=== PATIENT | female | born 1965 | race Caucasian/White ===

== ENCOUNTER 2024-12-17 10:21 | Inpatient (IN) | payer MEDICAID ==
[~2024-12-17] VITALS: Ht 170.1 cm; Wt 179.8 kg
[2024-12-17] MEDS ORDERED: ASPIRIN ADULT L81 M1 PO (11:18)
[2024-12-17] MEDS ORDERED: LASIX40 MG PO (11:19)
[2024-12-17] MEDS ORDERED: NEURONTIN600 MG PO (11:19)
[2024-12-17] MEDS ORDERED: LOSARTAN POTAS100 MG PO (11:20)
[2024-12-17] MEDS ORDERED: TRULICITY0.75 MG/0. SC (11:20)
[2024-12-17] MEDS ORDERED: CARVEDILOL3.125 MG PO (11:21)
[2024-12-17] MEDS ORDERED: FENOFIBRATE145 M1 PO (11:21)
[2024-12-17] MEDS ORDERED: BUSPAR5 MG PO (11:22)
[2024-12-17] MEDS ORDERED: METFORMIN HCL500 M3 PO (11:22)
[2024-12-17] MEDS ORDERED: ABILIFY10 MG PO (11:23)
[2024-12-17] MEDS ORDERED: REXULTI1 MG PO (11:23)
[2024-12-17] MEDS ORDERED: LIPITOR40 MG PO (11:24)
[2024-12-17] MEDS ORDERED: EFFEXOR XR75 M1 PO (11:24)
[2024-12-17] MEDS ORDERED: IRON325 M1 PO (11:25)
[2024-12-17] MEDS ORDERED: PANTOPRAZOLE SO40 MG PO (11:25)
[2024-12-17] MEDS ORDERED: ROPINIROLE HCL5 MG PO (11:26)
[2024-12-17] MEDS ORDERED: Clopidogrel75 MG PO (11:26)
[2024-12-17] MEDS ORDERED: XARE20MG PO (11:27)
[2024-12-17] MEDS ORDERED: VENT7GM INH (11:28)
[2024-12-17] MEDS ORDERED: DRAMAMINE25 M4 PO (11:29)
[2024-12-17] MEDS ORDERED: MEDROL DOSEPAK4 MG PO (11:30)
[2024-12-17] MEDS ORDERED: LORazepam 1 MG TAB PO PRN (11:35)
[2024-12-17] MEDS ORDERED: hydrOXYzine hydrochloride 50 MG/ML VIAL IM PRN (11:40)
[2024-12-17 14:02] VITALS: BP 160/84
[2024-12-17 14:36] VITALS: BP 160/84
[2024-12-17] MEDS ORDERED: FUROSEMIDE 40 MG TAB PO PRN (15:25)
[2024-12-17] MEDS ORDERED: DEXTROSE 50% 25 GM/50 ML VIAL IV PRN (15:25)
[2024-12-17] MEDS ORDERED: CARVEDILOL 3.125 MG TAB PO SCH (16:00)
[2024-12-17] MEDS ORDERED: CARVEDILOL 6.25 MG TAB PO SCH (16:00)
[2024-12-17] MEDS ORDERED: INSULIN LISPRO 1 UNIT/0.01 ML SQ SCH (16:30)
[2024-12-17] MEDS ORDERED: ACETAMINOPHEN 325 MG TAB PO PRN (16:35)
[2024-12-17] MEDS ORDERED: MG-AL HYDROXIDE/SIMETICONE 30 ML UDC PO PRN (16:35)
[2024-12-17] MEDS ORDERED: Menthol/Zinc Oxide 4 GM THIN T PRN (16:35)
[2024-12-17 20:00] VITALS: BP 131/78
[2024-12-17] MEDS ORDERED: Racepinephrine Hydrochloride 0.5 ML AMP NEB ONE (20:00)
[2024-12-17] MEDS ORDERED: SODIUM CHLORIDE 0.9% 3 ML AMP NEB ONE (20:00)
[2024-12-17] MEDS ORDERED: BREXPIPRAZOLE 1 MG TABLET PO SCH (21:00)
[2024-12-17] MEDS ORDERED: ATORVASTATIN CALCIUM 40 MG TABLET PO SCH (21:00)
[2024-12-17] MEDS ORDERED: Clopidogrel Hydrogen Sulfate 75 MG TAB PO SCH (21:00)
[2024-12-17] MEDS ORDERED: Mirtazapine 15 MG TAB PO SCH (21:00)
[2024-12-17] MEDS ORDERED: ARIPiprazole 5 MG TAB PO SCH (21:00)
[2024-12-17] MEDS ORDERED: GABAPENTIN 600 MG TAB PO SCH (22:00)
[2024-12-18 07:48] LABS: BASO # 0.0 10*3/uL (0.0-0.1); BASO % 0.6 % (0.0-1.0); EOS # 0.1 10*3/uL (0.0-0.4); EOS % 2.2 % (1.0-4.0); MEAN CELL VOLUME 100.2 fl (81.0-99.0); MEAN CORPUSCULAR HGB 31.2 pg (27.0-31.0); MEAN PLATELET VOLUME 10.5 fl (9.6-12.3); MONO # 0.5 10*3/uL (0.1-1.0); MONO % 7.2 % (3.0-9.0); NEUT # 3.6 10*3/uL (2.3-7.9); NEUT % 57.1 % (47.0-73.0); NUCLEATED RED BLOOD CELL 0.0 % (0.0-0.0); NUCLEATED RED BLOOD CELL 0.0 10*3/uL (0.0-0.0); PLATELET COUNT AUTOMATED 196 10*3/uL (130-400); RED CELL DISTRI WIDTH 12.7 % (0-14.5)
[2024-12-18 08:00] VITALS: BP 128/72
[2024-12-18 08:21] LABS: BUN 13 mg/dl (9-23); LDL CHOLESTEROL 83 mg/dL (9-159); SGPT/ALT 33 U/L (5-49)
[2024-12-18 08:42] LABS: VITAMIN D, 25-HYDROXY 24.5 ng/mL (30-100)
[2024-12-18] MEDS ORDERED: ASPIRIN, CHEWABLE 81 MG TAB PO SCH (09:00)
[2024-12-18] MEDS ORDERED: Metformin 500 MG EXTENDED-RELEASE TABLET PO SCH (09:00)
[2024-12-18] MEDS ORDERED: FENOFIBRATE 145 MG TAB PO SCH (09:00)
[2024-12-18] MEDS ORDERED: FERROUS SULFATE 325 MG TAB PO SCH (09:00)
[2024-12-18] MEDS ORDERED: AMMONIUM LACTATE 12% LOTION T SCH (10:00)
[2024-12-18] MEDS ORDERED: MUPIROCIN 15 GM TUBE T SCH (10:00)
[2024-12-18 18:35] LABS: BILIRUBIN Negative (Negative); BLOOD Negative (Negative); CLARITY Clear (Clear); COLOR Yellow (Yellow); KETONE Negative (Negative); LEUKO ESTERASE Negative (Negative); NITRITE Negative (Negative); PH 7.0 (4.5-8.0); SPECIFIC GRAVITY 1.020 (1.001-1.030); UROBILINOGEN 1.0 E.U./dl (0.0-1.0)
[2024-12-18 19:22] LABS: BACTERIA TRACE; RBC 0-2 rbc/hpf (0-2); WBC 0-2 wbc/hpf (0-5); YEAST TRACE
[2024-12-18 19:53] VITALS: BP 137/70
[2024-12-19 07:47] VITALS: BP 111/63
[2024-12-19] MEDS ORDERED: Cholecalciferol 5,000 IU CAP (125 MCG) PO SCH (09:00)
[2024-12-19 20:00] VITALS: BP 102/61
[2024-12-20 08:00] VITALS: BP 98/50
[2024-12-20 11:15] LABS: BASO # 0.0 10*3/uL (0.0-0.1); BASO % 0.5 % (0.0-1.0); EOS # 0.1 10*3/uL (0.0-0.4); EOS % 1.6 % (1.0-4.0); MEAN CELL VOLUME 101.7 fl (81.0-99.0); MEAN CORPUSCULAR HGB 31.6 pg (27.0-31.0); MEAN PLATELET VOLUME 10.1 fl (9.6-12.3); MONO # 0.4 10*3/uL (0.1-1.0); MONO % 6.3 % (3.0-9.0); NEUT # 4.4 10*3/uL (2.3-7.9); NEUT % 69.0 % (47.0-73.0); NUCLEATED RED BLOOD CELL 0.0 % (0.0-0.0); NUCLEATED RED BLOOD CELL 0.0 10*3/uL (0.0-0.0); PLATELET COUNT AUTOMATED 190 10*3/uL (130-400); RED CELL DISTRI WIDTH 12.7 % (0-14.5)
[2024-12-20] MEDS ORDERED: Desvenlafaxine Succinate 50 MG TER PO SCH (11:15)
[2024-12-20 11:58] LABS: BUN 14 mg/dl (9-23); SGPT/ALT 38 U/L (5-49)
[2024-12-20 20:00] VITALS: BP 117/63
[2024-12-21 08:32] VITALS: BP 102/61
[2024-12-21 20:00] VITALS: BP 117/60
[2024-12-22 07:46] VITALS: BP 131/70
[2024-12-22] MEDS ORDERED: Desvenlafaxine Succinate 50 MG TER PO SCH (09:00)
[2024-12-22 19:48] VITALS: BP 116/62
[2024-12-23 09:34] VITALS: BP 108/70
[2024-12-23 20:00] VITALS: BP 109/56
[2024-12-24 07:58] VITALS: BP 123/71
[2024-12-24] MEDS ORDERED: LORazepam 1 MG TAB PO ONE (08:35)
[2024-12-24 20:00] VITALS: BP 114/72
[2024-12-24] MEDS ORDERED: LAMOTRIGINE 25 MG TAB PO SCH (21:00)
[2024-12-25 00:52] LABS: BUN 17 mg/dl (9-23)
[2024-12-25] MEDS ORDERED: FAMOTIDINE 20 MG TAB PO ONE (01:05)
[2024-12-25 08:03] VITALS: BP 113/67
[2024-12-25 20:00] VITALS: BP 124/71
[2024-12-25] MEDS ORDERED: LAMOTRIGINE 25 MG TAB PO SCH (21:00)
[2024-12-26 08:30] VITALS: BP 125/70
[2024-12-26 19:58] VITALS: BP 122/78
[2024-12-27 08:00] VITALS: BP 118/77
[2024-12-27 20:00] VITALS: BP 122/46
[2024-12-27] MEDS ORDERED: LAMOTRIGINE 25 MG TAB PO SCH (21:00)
[2024-12-27] MEDS ORDERED: LAMOTRIGINE 100 MG TAB PO SCH (21:00)
[2024-12-28 08:00] VITALS: BP 110/70
[2024-12-28 20:00] VITALS: BP 137/60
[2024-12-28] MEDS ORDERED: LAMOTRIGINE 25 MG TAB PO SCH (21:00)
[2024-12-28] MEDS ORDERED: LAMOTRIGINE 100 MG TAB PO SCH (21:00)
[2024-12-29 08:50] VITALS: BP 124/79
[2024-12-29] MEDS ORDERED: Metformin 500 MG EXTENDED-RELEASE TABLET PO SCH (16:30)
[2024-12-29 20:00] VITALS: BP 107/58
[2024-12-30 07:25] LABS: BASO # 0.0 10*3/uL (0.0-0.1); BASO % 0.5 % (0.0-1.0); EOS # 0.1 10*3/uL (0.0-0.4); EOS % 2.2 % (1.0-4.0); MEAN CELL VOLUME 100.5 fl (81.0-99.0); MEAN CORPUSCULAR HGB 31.6 pg (27.0-31.0); MEAN PLATELET VOLUME 9.9 fl (9.6-12.3); MONO # 0.5 10*3/uL (0.1-1.0); MONO % 8.4 % (3.0-9.0); NEUT # 3.3 10*3/uL (2.3-7.9); NEUT % 56.4 % (47.0-73.0); NUCLEATED RED BLOOD CELL 0.0 % (0.0-0.0); NUCLEATED RED BLOOD CELL 0.0 10*3/uL (0.0-0.0); PLATELET COUNT AUTOMATED 201 10*3/uL (130-400); RED CELL DISTRI WIDTH 12.0 % (0-14.5)
[2024-12-30 07:47] LABS: BUN 16 mg/dl (9-23); SGPT/ALT 29 U/L (5-49)
[2024-12-30 08:00] VITALS: BP 108/71
[2024-12-30] MEDS ORDERED: METFORMIN XR500 MG PO (08:50)
[2024-12-30] MEDS ORDERED: VITAMIN D3125 MC1 PO (08:50)
[2024-12-30] MEDS ORDERED: LAMOTRIGINE 100 MG TAB PO SCH (09:00)
[2024-12-30 09:28] LABS: BILIRUBIN Negative (Negative); BLOOD Negative (Negative); CLARITY Cloudy (Clear); COLOR Yellow (Yellow); KETONE Trace (Negative); LEUKO ESTERASE Negative (Negative); NITRITE Negative (Negative); PH 6.5 (4.5-8.0); SPECIFIC GRAVITY 1.025 (1.001-1.030); UROBILINOGEN 1.0 E.U./dl (0.0-1.0)
[2024-12-30 09:44] LABS: BACTERIA TRACE; MUCOUS 1+; RBC 0-2 rbc/hpf (0-2); WBC 0-2 wbc/hpf (0-5); YEAST 1+
[2024-12-30] MEDS ORDERED: CLONAZEPAM0.5 M2 PO (10:40)
[2024-12-30] MEDS ORDERED: PRISTIQ50 MG PO (10:40)
== END 2024-12-30 11:50 | disposition home or self-care (01) | DRG 751 ==
LOC: 3N 10:21
PROVIDERS: Internal Medicine; Nurse Practitioner Women's Health; Registered Nurse; Student in an Organized Health Care Education/Training Program; ADMIT Psychiatry & Neurology Psychiatry; ATTEND Psychiatry & Neurology Psychiatry
PROC: GZHZZZZ Group Psychotherapy (ICD-10-PCS; principal; 2024-12-18)
PROC: GZ51ZZZ Individual Psychotherapy, Behavioral (ICD-10-PCS; 2024-12-18)
PROC: 0HBRXZZ Excision of Toe Nail, External Approach (ICD-10-PCS; 2024-12-20)
PROC: 0HBRXZZ Excision of Toe Nail, External Approach (ICD-10-PCS; 2024-12-20)
PROC: 0HBRXZZ Excision of Toe Nail, External Approach (ICD-10-PCS; 2024-12-20)
PROC: 0HBRXZZ Excision of Toe Nail, External Approach (ICD-10-PCS; 2024-12-20)
DX: F33.2 Major depressive disorder, recurrent severe without psychotic features (principal); E66.2 Morbid (severe) obesity with alveolar hypoventilation; J96.10 Chronic respiratory failure, unspecified whether with hypoxia or hypercapnia; L03.115 Cellulitis of right lower limb; L03.116 Cellulitis of left lower limb; Z68.44 Body mass index [BMI] 60.0-69.9, adult; J44.9 Chronic obstructive pulmonary disease, unspecified; F41.9 Anxiety disorder, unspecified; E78.5 Hyperlipidemia, unspecified; E11.42 Type 2 diabetes mellitus with diabetic polyneuropathy; I10 Essential (primary) hypertension; B35.1 Tinea unguium; I87.2 Venous insufficiency (chronic) (peripheral); Z79.4 Long term (current) use of insulin